=== PATIENT | female | born 1935 | race Caucasian/White ===

== ENCOUNTER 2017-03-12 11:54 | Observation (INO) | payer MEDICARE, OTHER ==
[~2017-03-12] VITALS: Ht 154.9 cm; Wt 50.8 kg
[~2017-03-12 11:54] MED LIST: IBUP-44 PO
[2017-03-12 11:59] VITALS: BP 115/60
--- NOTE | 2017-03-12 12:34 | NUR ---
PATIEN TO BED 7 AT THIS TIME.
--- NOTE | 2017-03-12 12:35 | NUR ---
81/F BIB FAMILY C/O CHEST PAIN & RADIATING TO L BACK THIS AM ; TOOK ASPIRIN 0500 AM. HX; DIVERTICULITIS, CHOLECYSTECTOMYPATIENT PRESENTS TO ED WITH . PT STATES . DENIES N/V/D; SKIN IS PINK/WARM/DRY; AAOX4 WITH EVEN AND STEADY GAIT; LUNGS CLEAR BL; HR EVEN AND REGULAR; PT DENIES ANY FEVER, SOB, OR COUGH AT THIS TIME; PATIENT STATES PAIN OF 4/10 AT THIS TIME; PATIENT POSITIONED FOR COMFORT; HOB ELEVATED; BEDRAILS UP X2; BED DOWN. ER MD MADE AWARE OF PT STATUS.
--- NOTE | 2017-03-12 13:08 | NUR ---
Patient being evaluated by physician at bedside.
[2017-03-12 14:02] LABS: BASOPHILS # (AUTO) 0.1 K/uL (0.00-0.22); BASOPHILS % (AUTO) 2.2 % (0.0-2.0); HEMATOCRIT 38.9 % (36-48); HEMOGLOBIN 13.3 g/dL (12.0-16.0); LYMPHOCYTES # (AUTO) 1.3 K/uL (2.5-16.5); LYMPHOCYTES % (AUTO) 27.9 % (20.5-51.1); MEAN CORPUSCULAR HEMOGLOBIN 32 pg (27-31); MEAN CORPUSCULAR HGB CONC 34 g/dL (33-37); MEAN CORPUSCULAR VOLUME 93 fL (80-94); MONOCYTES # (AUTO) 0.4 K/uL (0.8-1.0); MONOCYTES % (AUTO) 8.5 % (1.7-9.3); NEUTROPHILS # (AUTO) 2.9 K/uL (1.8-7.7); NEUTROPHILS % (AUTO) 60.4 % (42.2-75.2); PLATELET COUNT (AUTO) 172 K/uL (140-450); RED CELL DISTRIBUTION WIDTH 12.8 % (11.6-13.7); WHITE BLOOD COUNT (AUTO) 4.7 K/uL (4.8-10.8)
[2017-03-12 14:21] LABS: ALANINE AMINOTRANSFERASE 17 U/L (14-59); ALBUMIN 3.3 g/dL (3.4-5.0); ALKALINE PHOSPHATASE 65 U/L (46-116); ANION GAP 10.4 (8-16); ASPARTATE AMINOTRANSFERASE 17 U/L (15-37); CALCIUM 8.6 mg/dL (8.5-10.1); CARBON DIOXIDE 30.1 mmol/L (21-32); CHLORIDE 108 mmol/L (98-107); CREATININE 0.9 mg/dL (0.6-1.3); GLUCOSE 90 mg/dL (74-106); POTASSIUM 4.5 mmol/L (3.5-5.1); SODIUM SERUM 144 mmol/L (136-145); TOTAL BILIRUBIN 0.5 mg/dL (0.0-1.0); TOTAL PROTEIN, SERUM 6.2 g/dL (6.4-8.2); UREA NITROGEN, BLOOD 13 mg/dL (7-18)
[2017-03-12 14:22] LABS: INR 1.1 (0.8-1.2); PROTHROMBIN TIME 11.2 secs (10.8-13.4)
[2017-03-12] MEDS ORDERED: HYDROcodone/APAP 5/325 MG 1 TAB TAB PO PRN (15:30)
[2017-03-12] MEDS ORDERED: ACETAMINOPHEN 325 MG TAB PO PRN (15:30)
[2017-03-12] MEDS ORDERED: NITROGLYCERIN 0.4 MG TAB SL PRN (15:30)
[2017-03-12] MEDS: NACL 0.9% 1,000 ML IV SCH (15:30)
[2017-03-12] MEDS ORDERED: MORPHINE SULFATE 2 MG/ML SYR IVP PRN (15:30)
[2017-03-12] MEDS ORDERED: LORazepam 2 MG/ML VIAL IVP PRN (15:30)
[2017-03-12] MEDS ORDERED: ZOLPIDEM 5 MG TAB PO PRN (15:30)
[2017-03-12] MEDS ORDERED: ONDANSETRON 4 MG/2 ML VIAL IVP PRN (15:30)
[2017-03-12] MEDS ORDERED: CLINICAL MONITORING MC PRN (15:40)
--- NOTE | 2017-03-12 16:02 | NUR ---
GAVE REPORT TO NAVEEN JACOBSON.
--- NOTE | 2017-03-12 16:03 | NUR ---
Patient will be admitted to care of DR GAUTAM. Admited to TELE. Will go to [id number]. Belongings list completed. Report to NAVEEN JACOBSON.
--- NOTE | 2017-03-12 16:50 | NUR ---
NEW ADMIT FROM ED, REPORT RECEIVED FROM ED NURSE, PT A&OX4, CHIEF COMPLAINT WAS CHEST PAIN THAT RADIATING FROM THE LEFT TO THE LEFT SIDE OF HER BACK TO THE ABDOMEN. PT IS 81 YEARS OLD [place]UR[place] SPEAKING FEMALE, WALKS WITH SUPERVISION, NO WALKER AT THIS TIME, LIVES WITH HER SON, DAUGHTER TRANSLATES FOR THE PATIENT, IV IS 20 GAUGE AT RIGHT AC, SKIN INTACT AND NO KNOWN ALLERGIES.
--- NOTE | 2017-03-12 19:23 | NUR ---
REPORT GIVEN TO NIGHT NURSE, PT VERBALIZED UNDERSTANDING NEW NURSE FOR THE NIGHT, NO S/S OF DISTRESS, CALL LIGHT WITHIN REACH, SAFETY MEASURES ENSURED.
--- NOTE | 2017-03-12 19:30 | NUR ---
RECEIVED REPORT FROM DAY RN AT BEDSIDE, PATIENT IS AAOX4 ON ROOM AIR, NO SOB OR SIGN OF DISTRESS AT THIS TIME, IV TO RIGHT AC PATENT AND INTACT, SKIN INTACT, PATIENT DENIES PAIN AT THIS TIME. DISCUSSED PLAN OF CARE WITH PATIENT, PT VERBALIZED UNDERSTANDING, CALL LIGHT WITHIN REACH. WILL CONTINUE TO MONITOR
[2017-03-12 20:00] VITALS: BP 115/56
[2017-03-12] MEDS ORDERED: SIMVASTATIN 20 MG TAB PO SCH (21:00)
[2017-03-12] MEDS: METOPROLOL 25 MG TAB PO SCH (21:00)
--- NOTE | 2017-03-12 21:19 | NUR ---
GAVE PM MEDS. PATIENT TOLERATED WELL. HELD LOPRESSOR BECAUSE PATIENT'S HEART RATE WAS 54. PATIENT REQUESTED PAIN MEDICATION FOR ABDOMINAL PAIN, NORCO WAS GIVEN PER MD ORDER. PATIENT IS WITHOUT ANY SIGNS OF DISTRESS. BED IS IN LOW POSITION, CALL LIGHT WITHIN REACH. WILL CONTINUE TO MONITOR.
[2017-03-12 22:20] LABS: CREATINE KINASE MB 0.7 ng/mL (0-3.6)
[2017-03-13] VITALS: BP 124/60
--- NOTE | 2017-03-13 | NUR ---
VITAL SIGNS STABLE, NO SOB OR SIGN OF DISTRESS, CALL LIGHT WITHIN REACH. WILL CONTINUE TO MONITOR.
--- NOTE | 2017-03-13 02:30 | NUR ---
PT SLEEPING, NO SOB OR SIGN OF DISTRESS, CALL LIGHT WITHIN REACH. WILL CONTINUE TO MONITOR.
[2017-03-13 04:00] VITALS: BP 129/64
--- NOTE | 2017-03-13 04:00 | NUR ---
VITAL SIGNS STABLE, NO SOB OR SIGN OF DISTRESS, CALL LIGHT WITHIN REACH. WILL CONTINUE TO MONITOR
[2017-03-13] MEDS: NACL 0.9% 1,000 ML IV SCH (04:48)
[2017-03-13 06:21] LABS: BASOPHILS # (AUTO) 0.1 K/uL (0.00-0.22); BASOPHILS % (AUTO) 2.4 % (0.0-2.0); EOSINOPHILS # (AUTO) 0.1 K/uL (0-0.4); EOSINOPHILS % (AUTO) 2.2 % (0.0-4.0); HEMATOCRIT 37.8 % (36-48); HEMOGLOBIN 12.8 g/dL (12.0-16.0); LYMPHOCYTES # (AUTO) 1.8 K/uL (2.5-16.5); LYMPHOCYTES % (AUTO) 38.3 % (20.5-51.1); MEAN CORPUSCULAR HEMOGLOBIN 32 pg (27-31); MEAN CORPUSCULAR HGB CONC 34 g/dL (33-37); MEAN CORPUSCULAR VOLUME 94 fL (80-94); MONOCYTES # (AUTO) 0.5 K/uL (0.8-1.0); MONOCYTES % (AUTO) 10.7 % (1.7-9.3); NEUTROPHILS # (AUTO) 2.2 K/uL (1.8-7.7); NEUTROPHILS % (AUTO) 46.4 % (42.2-75.2); PLATELET COUNT (AUTO) 156 K/uL (140-450); RED BLOOD CELL COUNT(AUTO) 4.01 MIL/uL (4.20-5.40); RED CELL DISTRIBUTION WIDTH 12.5 % (11.6-13.7); WHITE BLOOD COUNT (AUTO) 4.7 K/uL (4.8-10.8)
[2017-03-13 06:29] LABS: ANION GAP 8.8 (8-16); CALCIUM 7.8 mg/dL (8.5-10.1); CARBON DIOXIDE 29.5 mmol/L (21-32); CHLORIDE 110 mmol/L (98-107); CREATININE 0.8 mg/dL (0.6-1.3); GLUCOSE 88 mg/dL (74-106); POTASSIUM 4.3 mmol/L (3.5-5.1); SODIUM SERUM 144 mmol/L (136-145); UREA NITROGEN, BLOOD 12 mg/dL (7-18)
[2017-03-13 07:04] LABS: CREATINE KINASE MB 0.7 ng/mL (0-3.6)
--- NOTE | 2017-03-13 07:04 | NUR ---
ENDORSED PATIENT TO DAY FILTER PULP WASHER AT BEDSIDE, PATIENT IN STABLE CONDITION
--- NOTE | 2017-03-13 07:04 | NUR ---
ASSUMED CONTINUITY OF CARE. NO SIGNS AND SYMPTOMS OF ACUTE DISTRESS NOTICED. INITIAL ASSESSMENT DONE. KEEP COMFORTABLE ON BED. RE-ORIENTED TO EVENTS AND SURROUNDINGS. EXPLAINED DIAGNOSIS, PLAN OF CARE, PAIN MANAGEMENT TEACHING, DIET, USE OF CALL LIGHT/BED/TV/BATHROOM. VERBALIZED UNDERSTANDING. FALL PRECAUTION APPLIED. CALL LIGHT WITHIN REACH.
--- NOTE | 2017-03-13 07:05 | NUR ---
ASSUMED CONTINUITY OF CARE. NO SIGNS AND SYMPTOMS OF ACUTE DISTRESS NOTED. INITIAL ASSESSMENT DONE. HOB ELEVATED AND KEEP COMFORTABLE ON BED. EXPLAINED DIAGNOSIS, PLAN OF CARE, PAIN MANAGEMENT TEACHING, USE OF CALL LIGHT/BED/TV/BATHROOM. VERBALIZED UNDERSTANDING. FALL PRECAUTION APPLIED. CALL LIGHT WITHIN REACH.
[2017-03-13] MEDS ORDERED: REGADENOSON 0.4 MG/5 ML SYR IV SCH (07:55)
--- NOTE | 2017-03-13 07:55 | NUR ---
PATIENT HAS BEEN SCREENED AND CATEGORIZED MODERATE NUTRITION RISK. PATIENT WILL BE SEEN WITHIN 3-5 DAYS OF ADMISSION. 03/15/17-03/17/[address]
[2017-03-13 08:00] VITALS: BP 132/56
[2017-03-13] MEDS ORDERED: ASPIRIN 81 MG TAB.CHEW PO SCH (09:00)
[2017-03-13] MEDS ORDERED: ENOXAPARIN 40 MG/0.4 ML SYR SUBQ SCH (09:00)
[2017-03-13] MEDS: METOPROLOL 25 MG TAB PO SCH (09:00)
--- NOTE | 2017-03-13 09:40 | NUR ---
Patient's Plan of Care was discussed and reviewed with ROOFER APPLICATOR: PAOLO SHEPARD
--- NOTE | 2017-03-13 11:26 | NUR ---
CM NOTE VERBAL REPORT GIVEN TO MICHELE COLLADO FOR [facility] (C: [phone]); NO REVIEW FAXED, PATIENT IS CURRENTLY OBSERVATION STATUS.
[2017-03-13 12:00] VITALS: BP 141/65
--- NOTE | 2017-03-13 12:06 | NUR ---
WENT TO CARDIO VIA WHEELCHAIR FOR LEXISCAN STRESS TEST. IN STABLE CONDITION.
--- NOTE | 2017-03-13 14:06 | NUR ---
LEXISCAN STRESS TEST DONE
[2017-03-13 16:00] VITALS: BP 138/63
--- NOTE | 2017-03-13 16:04 | NUR ---
CM NOTE SPOKE W/ MICHELE WOLFF FOR [facility]. MADE AWARE THAT PATIENT HAD NELLI PERFORMED THIS AM. SHE SAID THAT IF PATIENT HAS A POSITIVE READING, RN WILL HAVE TO CALL [phone] TO HELP FACILITATE TRANSFER TO [facility] FOR CARDIAC CATH; WILL NOT AUTH FOR [facility]. IF PATIENT REFUSES, RN TO CALL PROVIDED NUMBER TO NOTIFY CM.
--- NOTE | 2017-03-13 16:05 | NUR ---
WENT TO BATHROOM WITH ASSISTANCE FROM PT. DAUGHTER -CLOVIS. TOLERATED WELL. NO C/O PAIN. NO SOB, NOTED.
--- NOTE | 2017-03-13 16:30 | NUR ---
PAGED DR. GAUTAM AND SPOKE TO MAXIME REGARDING LEXISCAN RESULT AND D/C ORDER. LEFT CALL BACK NUMBER AND INFORMED CHARGE NURSE GILLIAN BLANTON -NAVEEN.
[2017-03-13 16:50] LABS: CREATINE KINASE MB 0.8 ng/mL (0-3.6)
--- NOTE | 2017-03-13 16:55 | NUR ---
DR. GAUTAM CALLED BACK, INFORMED OF LEXISCAN STRESS TEST RESULT AND ASKED FOR D/C ORDER. GOT TELEPHONE ORDER, READ BACK AND VERIFIED. INFORMED CHARGE NURSE GILLIAN YAO.
--- NOTE | 2017-03-13 17:00 | NUR ---
EXPLAINED TO PT., PT. DAUGHTERS TOMÁS ABOUT MD D/C ORDER, D/C INSTRUCTIONS AND TEACHING, PRIMARY CARE PHYSICIAN FOLLOW-UP IN 2 WEEKS, DISEASE MANAGEMENT, DIET, CONTINUATION OF HOME MEDICATION. PT., PT. ARIE DUMONT AND CLOVIS VERBALIZED UNDERSTANDING.
--- NOTE | 2017-03-13 17:10 | NUR ---
DR. DICKERSON CALLED, INFORMED OF LEXISCAN STRESS TEST RESULT. PER DR. DICKERSON, PT. CAN GO HOME AND FOLLOW-UP WITH HIM IN 1 MONTH. INFORMED CHARGE NURSE GILLIAN BLANTON -NAVEEN. EXPLAINED TO PT. AND PT. DAUGHTERS -TAMAR AND CLOVIS ABOUT DR. DICKERSON FOLLOW-UP IN 1 MONTH. THEY VERBALIZED UNDERSTANDING.
--- NOTE | 2017-03-13 18:00 | NUR ---
D/C VIA WHEELCHAIR WITH ASSISTANCE FROM GARFIELD ROMERO, ACCOMPANIED BY PT. ARIE -TAMAR AND CLOVIS. AWAKE, ALERT, AND ORIENTED X3. SPEECH CLEAR. NO C/O PAIN. NO SOB, NOTED. IN STABLE CONDITION. INFORMED CHARGE NURSE GILLIAN YAO.
== END 2017-03-13 18:00 | disposition home or self-care (01) ==
LOC: MED 11:54 → MTU 15:33
PROVIDERS: ADMIT Hospitalist; ATTEND Hospitalist
DX: R07.2 Precordial pain (principal); K57.90 Diverticulosis of intestine, part unspecified, without perforation or abscess without bleeding
CPT/HCPCS: 36415; 71010; 80048; 80053; 82550; 82553; 83735; 83880; 84484; 85025; 85610; 85730; 87081; 93005; 93017; 93307; 94760; 96360; 96361; 96372; 99285; A9500; A9502; G0378; J1650; J2785; J7030; Q0092; J7042

== ENCOUNTER 2017-04-29 10:35 | Emergency (ER) | payer MEDICARE, OTHER ==
[~2017-04-29] VITALS: Ht 166.6 cm; Wt 52.6 kg
[~2017-04-29 10:35] MED LIST changes: +ADVIL200 M1 PO; -IBUP-44 PO; +OMEPRAZOLE D/R20 M1; +TYLENOL
[2017-04-29 10:51] VITALS: BP 147/58
--- NOTE | 2017-04-29 12:38 | NUR ---
81/F BIB FAMILY C/O LOW BACK PAIN x TODAY @ 0815. PATIENT STATES SHE HURT HER BACKTODAY WHILE MOVING FURNITURE. PAIN 10/10 ACHING NON-RADIATING. PT DENIES ANY PRIOR INJURY OR MUSCULOSKELETAL DISORDER. AAOx4, PERRLA, AMBULATORY, BREATHING EVEN AND UNLABORED. ERMD NOTIFIED OF PATIENT STATUS.
[2017-04-29] MEDS ORDERED: MORPHINE SULFATE 2 MG/ML SYR IM ONE (12:45)
[2017-04-29] MEDS ORDERED: KETOROLAC 30 MG/ML VIAL IM ONE (12:45)
--- NOTE | 2017-04-29 14:21 | NUR ---
Patient discharged with v/s stable. Written and verbal after care instructions given and explained. Patient alert, oriented and verbalized understanding of instructions. Ambulatory with steady gait. All questions addressed prior to discharge. ID band removed. Patient advised to follow up with PMD. Rx of TRAMADOL 50MG TABLET given. Patient educated on indication of medication including possible reaction and side effects. Opportunity to ask questions provided and answered.
[2017-04-29 14:22] VITALS: BP 142/67
== END 2017-04-29 14:21 | disposition home or self-care (01) ==
LOC: MED 10:35
DX: S39.012A Strain of muscle, fascia and tendon of lower back, initial encounter (principal); R03.0 Elevated blood-pressure reading, without diagnosis of hypertension; X58.XXXA Exposure to other specified factors, initial encounter; Y93.89 Activity, other specified; Y92.89 Other specified places as the place of occurrence of the external cause; Y99.8 Other external cause status
CPT/HCPCS: 72131; 81002; 96372; 99284; J1885; J2270

== ENCOUNTER 2017-08-16 10:42 | Emergency (ER) | payer MEDICARE, OTHER ==
[~2017-08-16] VITALS: Ht 160 cm; Wt 51.3 kg
[~2017-08-16 10:42] MED LIST changes: -ADVIL200 M1 PO; +IBUP-44 PO; -OMEPRAZOLE D/R20 M1; -TYLENOL
[2017-08-16 10:43] VITALS: BP 145/75
--- NOTE | 2017-08-16 10:49 | NUR ---
Pt w/c assisted to bed 3.
--- NOTE | 2017-08-16 10:50 | NUR ---
82/F BIB SON C/O dizziness, weakness & LEFT CHEST PAIN RADIATES TO L SHOULDER started at 4 AM TODAY.SKIN IS WARM/DRY; AAOX4 WITH EVEN AND UNSTEADY GAIT WITH ASSISTANCE; LUNGS CLEAR BL; PT DENIES ANY FEVER OR COUGH AT THIS TIME; PATIENT STATES PAIN OF 9/10 AT THIS TIME; PATIENT POSITIONED FOR COMFORT; HOB ELEVATED; BEDRAILS UP X2; BED DOWN. AVTAR MCGRATH MADE AWARE OF PT STATUS. Addendum: 08/16/17 at 1114 by [email or web address] PT TOOK MEDS: MECLIZINE 25 MG 1TAB X 3 TIMES/DAY & ASPIRIN EC 81 MG X DAILY.
--- NOTE | 2017-08-16 11:26 | NUR ---
Patient being evaluated by DR SIERRA at bedside.
[2017-08-16] MEDS ORDERED: MORPHINE SULFATE 2 MG/ML SYR IVP ONE (11:40)
[2017-08-16] MEDS ORDERED: ONDANSETRON 4 MG/2 ML VIAL IVP ONE (11:40)
--- NOTE | 2017-08-16 11:50 | NUR ---
X-Ray at bedside.
[2017-08-16 12:00] LABS: BASOPHILS # (AUTO) 0.1 K/uL (0.00-0.22); BASOPHILS % (AUTO) 3.1 % (0.0-2.0); EOSINOPHILS % (AUTO) 0.7 % (0.0-4.0); HEMATOCRIT 37.8 % (36-48); HEMOGLOBIN 13.1 g/dL (12.0-16.0); LYMPHOCYTES # (AUTO) 1.3 K/uL (2.5-16.5); LYMPHOCYTES % (AUTO) 29.3 % (20.5-51.1); MEAN CORPUSCULAR HEMOGLOBIN 32 pg (27-31); MEAN CORPUSCULAR HGB CONC 35 g/dL (33-37); MEAN CORPUSCULAR VOLUME 91 fL (80-94); MONOCYTES # (AUTO) 0.4 K/uL (0.8-1.0); MONOCYTES % (AUTO) 8.5 % (1.7-9.3); NEUTROPHILS # (AUTO) 2.5 K/uL (1.8-7.7); NEUTROPHILS % (AUTO) 58.4 % (42.2-75.2); PLATELET COUNT (AUTO) 159 K/uL (140-450); RED BLOOD CELL COUNT(AUTO) 4.13 MIL/uL (4.20-5.40); RED CELL DISTRIBUTION WIDTH 13.2 % (11.6-13.7); WHITE BLOOD COUNT (AUTO) 4.4 K/uL (4.8-10.8)
[2017-08-16 12:22] LABS: APPEARANCE,URINE CLEAR (CLEAR); BILIRUBIN,URINE NEGATIVE (NEGATIVE); BLOOD, URINE NEGATIVE (NEGATIVE); COLOR,URINE YELLOW (YELLOW); LEUKOCYTE ESTERASE ,URINE NEGATIVE (NEGATIVE); NITRITE, URINE NEGATIVE (NEGATIVE); UGLUCOSE NEGATIVE (NEGATIVE)
--- NOTE | 2017-08-16 12:34 | NUR ---
FAMILY AT BEDSIDE. PT STATED L CHEST PAIN 3/10 AT THIS TIME.
[2017-08-16 13:40] LABS: ANION GAP 13.6 (8-16); CARBON DIOXIDE 25.6 mmol/L (21-32); CHLORIDE 111 mmol/L (98-107); GLUCOSE 102 mg/dL (74-106); POTASSIUM 4.2 mmol/L (3.5-5.1); SODIUM SERUM 146 mmol/L (136-145); UREA NITROGEN, BLOOD 14 mg/dL (7-18)
[2017-08-16 13:41] LABS: ASPARTATE AMINOTRANSFERASE 16 U/L (15-37); CREATININE 0.9 mg/dL (0.6-1.3); TOTAL BILIRUBIN 0.4 mg/dL (0.0-1.0)
[2017-08-16 13:42] LABS: ALBUMIN 3.1 g/dL (3.4-5.0)
--- NOTE | 2017-08-16 13:46 | NUR ---
Patient appears to be resting comfortably in bed. BP 108/58,P 53/MIN , Respirations even and unlabored.
[2017-08-16 14:36] VITALS: BP 108/50
--- NOTE | 2017-08-16 14:36 | NUR ---
Patient discharged with v/s stable. Written and verbal after care instructions given and explained. Patient alert, oriented and verbalized understanding of instructions. Ambulatory with steady gait. All questions addressed prior to discharge. ID band removed. Patient advised to follow up with PMD. Rx of MECLIZINE & IBUPROFEN given. Patient educated on indication of medication including possible reaction and side effects. Opportunity to ask questions provided and answered.
== END 2017-08-16 14:36 | disposition home or self-care (01) ==
LOC: MED 10:42
DX: R42 Dizziness and giddiness (principal); M79.1 Myalgia; R94.31 Abnormal electrocardiogram [ECG] [EKG]; Z79.899 Other long term (current) drug therapy
CPT/HCPCS: 36415; 71045; 80053; 81003; 84484; 85025; 85379; 87086; 87804; 96374; 96375; 99285; J2270; J2405; Q0092

== ENCOUNTER 2019-05-02 20:47 | Emergency (ER) | payer MEDICARE, OTHER ==
[~2019-05-02] VITALS: Ht 154.9 cm; Wt 53.5 kg
[2019-05-02 20:55] VITALS: BP 146/71
[2019-05-02] MEDS ORDERED: NACL 0.9% 1,000 ML IV ONE (21:30)
[2019-05-02 22:01] LABS: BASOPHILS % (AUTO) 0.3 % (0.0-2.0); EOSINOPHILS # (AUTO) 0.1 K/uL (0-0.4); EOSINOPHILS % (AUTO) 1.1 % (0.0-4.0); HEMATOCRIT 40.3 % (36-48); HEMOGLOBIN 13.4 g/dL (12.0-16.0); LYMPHOCYTES % (AUTO) 21.1 % (20.5-51.1); MEAN CORPUSCULAR HEMOGLOBIN 32 pg (27-31); MEAN CORPUSCULAR HGB CONC 33 g/dL (33-37); MONOCYTES # (AUTO) 0.4 K/uL (0.8-1.0); MONOCYTES % (AUTO) 7.9 % (1.7-9.3); NEUTROPHILS # (AUTO) 3.4 K/uL (1.8-7.7); NEUTROPHILS % (AUTO) 69.6 % (42.2-75.2); PLATELET COUNT (AUTO) 170 K/uL (140-450); RED BLOOD CELL COUNT(AUTO) 4.16 MIL/uL (4.20-5.40); RED CELL DISTRIBUTION WIDTH 13.7 % (11.6-13.7); WHITE BLOOD COUNT (AUTO) 4.8 K/uL (4.8-10.8)
[2019-05-02 22:11] LABS: PROTHROMBIN TIME 10.3 secs (10.8-13.4)
[2019-05-02 22:16] LABS: ANION GAP 9.8 (8-16); CARBON DIOXIDE 29.3 mmol/L (21-32); CHLORIDE 107 mmol/L (98-107); CREATININE 0.9 mg/dL (0.6-1.3); GLUCOSE 110 mg/dL (74-106); POTASSIUM 4.1 mmol/L (3.5-5.1); SODIUM SERUM 142 mmol/L (136-145); UREA NITROGEN, BLOOD 20 mg/dL (7-18)
[2019-05-02 22:25] LABS: ALBUMIN 3.5 g/dL (3.4-5.0); ASPARTATE AMINOTRANSFERASE 17 U/L (15-37); LIPASE 160 U/L (73-393); TOTAL BILIRUBIN 0.3 mg/dL (0.0-1.0)
[2019-05-02 22:27] LABS: APPEARANCE,URINE CLEAR (CLEAR); BILIRUBIN,URINE NEGATIVE (NEGATIVE); BLOOD, URINE NEGATIVE (NEGATIVE); COLOR,URINE YELLOW (YELLOW); LEUKOCYTE ESTERASE ,URINE NEGATIVE (NEGATIVE); NITRITE, URINE NEGATIVE (NEGATIVE); PH,URINE 6.5 (5.0-9.0); UGLUCOSE NEGATIVE (NEGATIVE)
[2019-05-02] MEDS ORDERED: ONDANSETRON 4 MG/2 ML VIAL IVP ONE (22:55)
[2019-05-02] MEDS ORDERED: KETOROLAC 30 MG/ML VIAL IVP ONE (22:55)
[2019-05-03 00:10] VITALS: BP 127/56
== END 2019-05-03 00:10 | disposition home or self-care (01) ==
LOC: MED 20:47
DX: R10.10 Upper abdominal pain, unspecified (principal); R00.2 Palpitations; R53.1 Weakness; E78.00 Pure hypercholesterolemia, unspecified; Z79.1 Long term (current) use of non-steroidal anti-inflammatories (NSAID); Z87.19 Personal history of other diseases of the digestive system; Z86.79 Personal history of other diseases of the circulatory system
CPT/HCPCS: 36415; 71045; 74176; 80053; 81003; 83605; 83690; 83880; 84484; 85025; 85610; 87040; 87086; 96374; 96375; 99284; J1885; J2405; J7030; Q0092